=== PATIENT | female | born 1970 ===

== ENCOUNTER → 2021-12-18 12:24 | Outpatient (CLI) | payer BC, SELFPAY ==
--- NOTE | 2021-12-18 | DI.RAD_ITS ---
Exam(s) XR CHEST 2V PA LATERAL EXAM: XR CHEST 2V PA LATERAL CLINICAL HISTORY: SUBACUTE COUGH X WEEKS, R05.2; NEG COVID/FLU; SOB; ? PNA. TECHNIQUE: 2D digital imaging was performed. COMPARISON: No exams were available for comparison FINDINGS: 2 views: Heart size is normal. The mediastinum is not widened. Lungs are clear. No infiltrates nor pleural effusions. IMPRESSION: No acute pulmonary findings. DATA REPOSITORY: RADIATION DOSE DELIVERED:
--- OUTSIDE RECORDS SUMMARY | 2021-12-25 12:25 | XMS_ITS | Encounter Summary ---
:1970 Author Organization [facility] Address [address] [place] [address] Care Team Providers Name Role Phone Lety Madrigal DO Primary Care Provider [phone] Encounter Details Date Type Department Care Team Description 04/26/2020 Hospital Visit [facility] Negin Black DO Conversion [address] [place] [address] [address] [place], [place] [address] (Wo rk) Social History Tobacco Use Types Packs/Day Years Used Date Never Assessed Sex Assigned at Date Recorded Not on file documented as of this encounter Plan of Treatment Not on filedocumented as of this encounter Procedures Procedure Name Priority Date/Time Associated Comments Diagnosis [facility] Routine 04/26/2020 1:20 PM Res ults for this RESULT EST procedure are i n the results section. documented in this encounter Results (ABNORMAL) [facility] RESULT (04/26/2020 1:20 PM EST) [facility] gist Method Time Signature Coronavirus DETECTED NOT [facility] COVID-19 (AA) DETECTED HISTORICAL RESULTS Specimen (Source) Anatomical Collection Method Collection Time Re ceived Time Location / / Volume Laterality 04/26/2020 1:20 PM EST Nasima Hernandez DO LAB SEND OUT ORDERABLES Performing Organization Address City/State/ZIP Code Phon e Number [facility] HISTORICAL RESULTS [address] [facility] [place] [address] [facility] HISTORICAL RESULTS [address] [place] [address] documented in this encounter Visit Diagnoses Not on filedocumented in this encounter Care Teams Restaurant Maintenance Technician Relationship Specialty Start Date End Date Lety Madrigal DO PCP - General 03/07/09 [address] [place] [address] documented as of this encounter
--- OUTSIDE RECORDS SUMMARY | 2021-12-25 12:25 | XMS_ITS | Encounter Summary ---
:1970 Author Organization [facility] Address [address] [place] [address] Care Team Providers Name Role Phone eLty Madrigal Primary Care Provider [phone] Encounter Details Date Type Department Care Team Description 06/12/2021 Hospital Encounter [facility] Jannet Espinal[address] [place] [phone] (Wo rk) Social History Tobacco Use Types Packs/Day Years Used Date Never Assessed Sex Assigned at Date Recorded Not on file documented as of this encounter Medications at Time of Discharge Medication Sig Dispensed Refills Start Date End Date sertraline 100 MG Tab Take 100 mg daily by 0 mouth documented as of this encounter Progress Notes Alesia Andrews RN - 06/12/2021 10:15 PM EST Pt advised of pos covid 19 testing. Questions and concerns were answered. documented in this encounter Plan of Treatment Not on filedocumented as of this encounter Procedures Procedure Name Priority Date/Time Associated Diagnosis Comme nts CORONAVIRUS COVID-19 Routine 06/12/2021 12:10 Upper respirator y Results for this AM EST tract infection, procedure a re in unspecified type the results section. documented in this encounter Results (ABNORMAL) CORONAVIRUS COVID-19 (06/12/2021 12:10 AM EST) [facility] gist Method Time Signature Coronavirus DETECTED NOT [facility] COVID-19 (AA) DETECTED [facility] Comment: This SARS-CoV-2 assay is a real-time RT- PCR test intended for the qualitative detection of nucleic acid from the SARS-CoV-2 in respiratory specimens from individuals suspected of having COVID-19 infection. This test was developed and its performa nce characteristics determined by [facility]. This doug t has not been FDA cleared or approved. This test has been authorized by the FDA under an Emergency Use Authorization (EUA). This test has been validated in accordance with e FDA's Guidance Document Policy for Diagnostics Testing in Laboratories Certified to Perform High Complexity Doug ting under CLIA prior to Emergency Use Authorization for Coronavirus Disease-2019 during the Public Health Em ergency issued on August 08, 2019. [facility] 2019-nCoV Real Time RT-PCR Diagnosti c Panel (CDC) Centers for Disease Control and Preventions (CDC) Specimen Anatomical Collection Method Collection Time Receive d Time (Source) Location / / Volume Laterality Swab 06/12/2021 12:10 06/12/2021 8:43 AM EST PM EST Jannet Espinal PAC MICROBIOLOGY - GENERAL ORDER SONIA Performing Organization Address City/State/ZIP Code Phon e Number [facility] [address] [place] [address] 2 [phone] documented in this encounter Visit Diagnoses Diagnosis Upper respiratory tract infection, unspe cified type documented in this encounter Additional Health Concerns Infection Onset Date Last Indicated Resolved Time R/O COVID-19 06/12/2021 06/12/2021 06/13/2021 12:19 PM EST documented as of this encounter Care Teams Emergency Management Coordinator Relationship Specialty Start Date End Date Lety Madrigal DO PCP - General 03/07/09 [address] [place] [id number] documented as of this encounter
--- OUTSIDE RECORDS SUMMARY | 2021-12-25 12:25 | XMS_ITS | Encounter Summary ---
:1970 Author Organization [facility] Address [address] [place] [address] Care Team Providers Name Role Phone Lety Madrigal DO Primary Care Provider [phone] Jose Aquino MD Unavailable Encounter Details Date Type Department Care Team Description 03/07/2009 Hospital Visit [facility] OUTPATIENT Wesley Madrigal, DO [address] [facility] [address] [place], [place] [address] (Wo rk) Social History Tobacco Use Types Packs/Day Years Used Date Never Assessed Sex Assigned at Date Recorded Not on file documented as of this encounter Plan of Treatment Not on filedocumented as of this encounter Procedures Procedure Name Priority Date/Time Associated Diagnosis Comme nts XR CHEST PA AND 03/07/2009 2:02 PM Result s for this LATERAL EDT procedure are i n the results section. documented in this encounter Results XR CHEST PA AND LATERAL (03/07/2009 2:02 PM EDT) Specimen (Source) Anatomical Collection Method Collection Time Re ceived Time Location / / Volume Laterality 03/07/2009 2:02 PM EDT Narrative [facility] - 03/07/2009 6:58 PM EDT ? DATE: ?03/07/2009 ?14:2 ? ORDERED EXAM: ?CHEST W/ LAT. ? EXAM: ?? CHEST AND LATERAL 28-0 9 ? INDICATION: ??Cough. ? COMPARISON: ??None. ? FINDINGS: ??A two-view study of t erika chest demonstrates patchy opacity at the ? left lung base suggesting a small infiltrate. ??The right lung appears ? grossly clear. ??The heart is not enlarged. Mediastinal contours are within ? normal limits. ??No pleural effus ion is identified. ? IMPRESSION: ??Findings consistent with left lower lobe infiltrate. ??Followup ? to radiographic clearing is recom mended. ? Approved Result / Electronical ly Signed by ??MARCELLE LITTLE 08-Mar-2009 08:28 ? end of result Lety Madrigal DO IMG DIAGNOSTIC IMAGING ORDER SONIA Performing Organization Address City/State/ZIP Code Phon e Number [facility] [place] [place] [facility] [address] [facility] [place] [address] documented in this encounter Visit Diagnoses Not on filedocumented in this encounter Additional Health Concerns Infection Onset Date Last Indicated Resolved Time R/O COVID-19 06/12/2021 06/12/2021 06/13/2021 12:19 PM EST COVID-19 06/12/2021 06/12/2021 07/12/2021 7:27 PM EST documented as of this encounter Care Teams Supervisor Glycerin Relationship Specialty Start Date End Date Lety Madrigal DO PCP - General 03/07/09 [address] [place] [address] Jose Aquino MD PCP - Maternal - 02/12/12 08/07/16 7 [facility] Medicine (change to care [address] team) [place] [id number] documented as of this encounter
--- OUTSIDE RECORDS SUMMARY | 2021-12-25 12:25 | XMS_ITS | Encounter Summary ---
:1970 Author Organization [facility] Address [address] [place] [address] Care Team Providers Name Role Phone Lety Madrigal Primary Care Provider [phone] Reason for Visit Reason Onset Date Comments Abnormal Labs 06/13/2021 Encounter Details Date Type Department Care Team Description 06/13/2021 Telephone [facility] Walk In in Jannet Espinal, Abnormal Labs [address] [place], [place] [phone] [address] [phone] [place] [address] (Wo rk) Social History Tobacco Use Types Packs/Day Years Used Date Never Assessed Sex Assigned at Date Recorded Not on file documented as of this encounter Miscellaneous Notes Telephone Encounter - Alesia Andrews RN - 06/13/2021 12:44 PM ESTSummary: Covid Positive Pt advised of pos covid 19 testing. Questions and concerns were answered. documented in this encounter Plan of Treatment Not on filedocumented as of this encounter Visit Diagnoses Not on filedocumented in this encounter Additional Health Concerns Infection Onset Date Last Indicated Resolved Time R/O COVID-19 06/12/2021 06/12/2021 06/13/2021 12:19 PM EST COVID-19 06/12/2021 06/12/2021 07/12/2021 7:27 PM EST documented as of this encounter Care Teams Green Building Materials Designer Relationship Specialty Start Date End Date Lety Madrigal DO PCP - General 03/07/[address] [facility] [address] [place] [address] documented as of this encounter
--- OUTSIDE RECORDS SUMMARY | 2021-12-25 12:25 | XMS_ITS | Encounter Summary ---
:1970 Author [facility] Address [address] [place] [address] Care Team Providers Name Role Phone Lety Madrigal DO Primary Care Provider [phone] Encounter Details Date Type Department Care Team Description 10/17/2020 Immunization [facility] COVID-19 Vaccination Clinic [address] [phone] Social History Tobacco Use Types Packs/Day Years Used Date Never Assessed Sex Assigned at Date Recorded Not on file documented as of this encounter Plan of Treatment Not on filedocumented as of this encounter Visit Diagnoses Not on filedocumented in this encounter Care Teams Inbound Telemarketer Relationship Specialty Start Date End Date Lety Madrigal DO PCP - General 03/07/09 [address] [address] documented as of this encounter"
--- OUTSIDE RECORDS SUMMARY | 2021-12-25 12:25 | XMS_ITS | Encounter Summary ---
:1970 Author Organization [facility] Address [address] [place] [address] Care Team Providers Name Role Phone Lety Madrigal DO Primary Care Provider [phone] Jose Aquino MD Unavailable Encounter Details Date Type Department Care Team Description 03/07/2009 Hospital Visit [facility] OUTPATIENT Provider, Unknown Social History Tobacco Use Types Packs/Day Years [...] documented as of this encounter Care Teams Webbing Seamer Pound Net Relationship Specialty Start Date End Date Lety Madrigal DO PCP - General 03/07/09 [address] [place] [address] Jose Aquino MD PCP - Maternal - 02/12/12 08/07/16 7 [facility] Medicine (change to care [address] team) [place] [address] documented as of this encounter
--- OUTSIDE RECORDS SUMMARY | 2021-12-25 12:25 | XMS_ITS | Encounter Summary ---
:1970 [facility] Address [address] [place] [address] Care Team Providers Name Role Phone Lety Madrigal DO Primary Care Provider [phone] Encounter Details Date Type Department Care Team Description 09/26/2020 Immunization [facility] COVID-19 Vaccination Clinic [address] [phone] Social History Tobacco Use Types Packs/Day Years Used Date Never Assessed Sex Assigned at Date Recorded Not on file documented as of this encounter Plan of Treatment Not on filedocumented as of this encounter Visit Diagnoses Not on filedocumented in this encounter Care Teams Donor Specialist Relationship Specialty Start Date End Date Lety Madrigal DO PCP - General 03/07/09 [address] [address] documented as of this encounter
--- OUTSIDE RECORDS SUMMARY | 2021-12-25 12:25 | XMS_ITS | Clinical Summary ---
:1970 Author Organization [facility] Address [address] [place] [address] Care Team Providers Name Role Phone Lety Madrigal Primary Care Provider [phone] Allergies No known active allergies Medications Medication Sig Dispensed Refills Start Date End Date Status sertraline 100 MG Tab Take 100 mg daily 0 Active by mouth Active Problems Problem Noted Date Upper respiratory tract infection, unspecified type Last Assessment & Plan: Patient seen via telemedicine, rodney sorensen limitations and would like to move forward with this visit. Based on history and limited physical exam, no clinical concern for bacterial involvement and no in dication for antibiotic treatment. No fe moses. Covid swab was obtained today. Understands we will only call with a positive Covid result. They will otherwise use MyChart to see negative result in the next 1 to 2 days. Understands PCPs office or clinic can also help with this follow- up should they have any difficulty. Needs to quarantine until negative result. Advised to use [id number] cough suppre ssants as needed and use Tylenol or ibup rofen for discomfort. Can use Cepacol drops or Chloraseptic spray as needed for sore throat. Discussed use of warm tea with lemon and honey and warm salt water ga rgles additionally for symptomatic relie f. It may also help to use a vaporizer at night but to keep it clean. Counseled that if they develop spasms of coughing try getting into a steamy shower. Instruct ed to go to the emergency room if they h ave severe sore throat, headaches, difficulty swallowing cough causing wheezing or shortness of breath, chest pain, if they have high fevers, weakness, or any oth er new or concerning symptoms. Counseled to call their primary care provider to update them and arrange follow up if symptoms don't improve in the next week. Immunizations Name Administration Dates Next Due Pfizer,Purple Cap,Covid-19,mrna,lnp-s,pf,0.3ml 10/17/2020, 0 09/26/2020 ([id number]) Social History Tobacco Use Types Packs/Day Years Used Date Never Assessed Sex Assigned at Date Recorded Not on file Plan of Treatment Health Maintenance Due Date Last Done Comments Depression Screening 1982 HIV Screening 1985 Colonoscopy 1988 Colorectal Cancer Screening 1988 Hepatitis C Screening 1988 CT Colonography 1990 FIT 1990 Sigmoidoscopy 1990 Stool DNA 1990 Cervical Cancer Screening 12/01/1991 Breast Cancer Screening 2000 Lipid Screening 2005 Herpes Zoster Vaccine (1 of 2020 2) COVID-19 Vaccine (3 - 03/19/2021 10/17/2020, 09/26/2020 Booster for Pfizer series) Influenza Vaccine (#1) 2022 04/03/2021, 02/29/2020, 03/30/2019, Additional history exists TDAP/TD Vaccine 18+ 09/11/2027 09/10/2017, 06/10/2007 Pneumococcal: Pediatrics (0 Aged Out No l onger eligible to 5 Years) and At-Risk based on patient's age Patients (6 to 64 Years) to comp lete this topic Insurance Payer Benefit Plan / Subscriber ID Effective Dates Phone Addre ss Type Group BCBS VANESSA MENDEZ GUIDED [id number] 2020-Present [address] [place] [address] Advance Directives For more information, please contact: [phone] Documents on File Type Date Recorded Patient Sales Review Clerk Explanati on Advance Directives and Living Will Power of Overweaver Care Teams Coastal And Estuary Specialist Relationship Specialty Start Date End Date Lety Madrigal DO PCP - General 03/07/09 [address] [place] [address]
== END ==
PROVIDERS: Visit Provider Family Medicine
DX: R05.2 Subacute cough (principal); R06.02 Shortness of breath
CPT/HCPCS: 71046